=== PATIENT | male | born 1940 | race Caucasian/White ===

== ENCOUNTER 2022-07-09 15:00 | Outpatient (CLI) | payer MEDICARE, BC, SELFPAY | END 2022-07-09 15:01 | disposition home or self-care (01) | LOC: AMB 07-21 01:02 | PROVIDERS: PCP Student in an Organized Health Care Education/Training Program; Visit Provider Family Medicine | DX: R33.9 Retention of urine, unspecified (principal) | CPT/HCPCS: A0425; A0429 ==